=== PATIENT | male | born 1940 | race African-American/Black ===

== ENCOUNTER 2018-10-31 06:08 | Emergency (ER) | payer MEDICARE, OTHER ==
[~2018-10-31] VITALS: Ht 177.8 cm; Wt 82.1 kg
[2018-10-31] MEDS ORDERED: DEXAMETHASONE 10 MG/ML VIAL IV ONE (10:30)
[2018-10-31] MEDS ORDERED: KETOROLAC 15MG/ML VIAL IV ONE (10:30)
[2018-10-31] MEDS ORDERED: DEXAMETHASONE 10 MG/ML VIAL IM ONE (11:30)
[2018-10-31] MEDS ORDERED: KETOROLAC 15MG/ML VIAL IM ONE (11:30)
[2018-10-31 11:52] VITALS: BP 165/70
== END 2018-10-31 12:00 | disposition left against medical advice (07) ==
LOC: EDBD 06:08 → ER 07:19
DX: J02.9 Acute pharyngitis, unspecified (principal); J39.2 Other diseases of pharynx; R59.1 Generalized enlarged lymph nodes; R25.2 Cramp and spasm; I10 Essential (primary) hypertension; F17.200 Nicotine dependence, unspecified, uncomplicated; Z85.46 Personal history of malignant neoplasm of prostate
CPT/HCPCS: 96372; 99283; J1100; J1885